=== PATIENT | male | born 1980 | race Caucasian/White ===

== ENCOUNTER 2018-06-06 14:53 | Outpatient (CLI) | payer BC, SELFPAY ==
--- NOTE | 2018-06-06 14:03 | DI.RAD_ITS ---
SYMPTOM/DIAGNOSIS: LT SHOULDER PAIN LEFT SHOULDER: 06/06 Three views were obtained. The glenoid is not ideally visualized on these views but appears to show some cortical irregularity anteriorly with subchondral lucencies. The findings may represent degenerative and/or post traumatic findings. Mild degenerative changes noted at the A-C joint. No other significant findings.
== END 2018-06-06 15:13 ==
PROVIDERS: PCP Nurse Practitioner; Visit Provider Student in an Organized Health Care Education/Training Program
DX: M25.512 Pain in left shoulder (principal); M19.012 Primary osteoarthritis, left shoulder
CPT/HCPCS: 73030

== ENCOUNTER 2018-06-09 00:37 | Outpatient (CLI) | payer BC, SELFPAY ==
--- NOTE | 2018-06-09 16:28 | DI.MRI_ITS ---
SYMPTOMS/DIAGNOSIS: LT SHOULDER PAIN, M25.512, ? PARTIAL RTC TEAR MRI OF THE LEFT SHOULDER: Routine noncontrast examination was performed. The supraspinatus, infraspinatus , teres minor and subscapularis tendons are intact. No evidence of a tear is seen. The rotator cuff muscles show normal signal and size. No muscular fatty atrophy is present. The biceps tendon has a normal appearance and location. The glenoid labrum has a normal appearance on this noncontrast examination. The glenohumeral articular cartilage appears well maintained. The ligaments are intact. No focal fluid collection or soft tissue mass is appreciated. Note is made of an os acromiale which is a normal variant. Mild degenerative signal changes are seen across the os. There is a multicystic lesion seen in the anterior inferior glenoid. The mass measures 1.9 x 1.8 cm. The lesion involves the marrow but extends beyond the cortex. No definite associated soft tissue mass is appreciated. IMPRESSION: 1. No evidence of a rotator cuff or labral tear. 2. Multicystic lesion involving the glenoid labrum. Follow up is recommended. This should include a CT scan of the shoulder. This may be followed by a post contrast MRI.
== END 2018-06-09 00:57 ==
PROVIDERS: PCP Nurse Practitioner; Visit Provider Student in an Organized Health Care Education/Training Program
DX: M25.512 Pain in left shoulder (principal); S43.432A Superior glenoid labrum lesion of left shoulder, initial encounter
CPT/HCPCS: 73221

== ENCOUNTER 2018-06-17 00:30 | Outpatient (CLI) | payer BC, SELFPAY ==
--- NOTE | 2018-06-17 08:09 | DI.CT_ITS ---
SYMPTOMS/DIAGNOSIS: SHOULDER LESION, EVALUATE LEFT GLENOID MASS, M75.[address]: CT examination of the shoulder was performed to evaluate findings seen on recent radiographs and MRI of a cystic anterior glenoid lesion with extension into soft tissue. CT findings comprise well-circumscribed numerous sclerotic- rimmed, rounded foci in the anterior glenoid consistent with cysts. Additionally, there are areas of irregular bony remodeling, although no gross destructive lesion is seen. There is gas in the glenohumeral joint space and also seen in the soft tissues adjacent to the anterior glenoid; correlation is requested regarding any recent instrumentation. If there has not been instrumentation, the possibility of infectious process would have to be considered. CONCLUSION: The differential diagnosis for the findings as described above would include degenerative arthropathy or other arthropathies, neoplastic disease, or infection. I would suggest additional imaging be obtained to include pre and post contrast MR evaluation of this region with T1 fat-sat imaging.
== END 2018-06-17 00:50 ==
PROVIDERS: PCP Nurse Practitioner; Visit Provider Student in an Organized Health Care Education/Training Program
DX: M75.82 Other shoulder lesions, left shoulder (principal); M19.011 Primary osteoarthritis, right shoulder
CPT/HCPCS: 73200

== ENCOUNTER 2018-06-24 01:36 | Outpatient (CLI) | payer BC, SELFPAY ==
[2018-06-24] MEDS: Gadoterate meglumine 20 ML VIAL IVP (15:08)
--- NOTE | 2018-06-24 15:16 | DI.MRI_ITS ---
SYMPTOMS/DIAGNOSIS: F/U CT, EVALUATE LEFT GLENOID MASS, M75.92 LEFT SHOULDER MRI: MRI examination of the shoulder was performed utilizing pre and post contrast multiplanar T1 fat-sat imaging. The previously noted, approximately 2 cm in diameter anterior labral mass-like abnormality seen on previous MRI and CT is again noted. This shows moderate enhancement on post contrast imaging in comparison with the pre contrast images. The enhancement pattern involves predominantly the septa of the cystic-appearing rounded regions in this mass. No enhancement of the surrounding tissues seen. The border is fairly well circumscribed. CONCLUSION: Post contrast enhancement noted in glenoid lesions as described above. The findings are suspicious for neoplastic disease including giant cell tumor and biopsy is recommended.
== END 2018-06-24 01:56 ==
PROVIDERS: PCP Nurse Practitioner; Visit Provider Student in an Organized Health Care Education/Training Program
DX: M75.82 Other shoulder lesions, left shoulder (principal)
CPT/HCPCS: 73222

== ENCOUNTER 2018-06-29 16:12 | Outpatient (REF) | payer BC, SELFPAY ==
[2018-06-29 22:19] LABS: TSH (W/Ref FT4) 3.33 uIU/mL (0.358-3.74)
== END 2018-06-29 16:32 ==
LOC: NCHCN 16:12
PROVIDERS: PCP Nurse Practitioner; Visit Provider Nurse Practitioner
DX: E03.9 Hypothyroidism, unspecified (principal)
CPT/HCPCS: 84443

== ENCOUNTER 2018-08-05 21:18 | Outpatient (REF) | payer BC, SELFPAY ==
[2018-08-05 22:25] LABS: Abs Immature Grans 0.01 k/cumm (0.0-0.09); Absolute Basophil Count 0.02 k/cumm (0.0-0.2); Absolute Eosinophil Count 0.26 k/cumm (0.0-0.7); Absolute Lymphocyte Count 1.73 k/cumm (1.2-3.4); Absolute Monocyte Count 0.58 k/cumm (0.11-0.7); Basophils % 0.3; Eosinophils % 4.3; HCT 49.1 % (40.0-50.0); HGB 16.7 g/dL (13.5-17.5); Immature Grans % 0.2; Lymphocytes % 28.4; Mean Corpuscular Hemoglobin 30.2 pg (27.0-33.0); Mean Corpuscular Volume 88.8 fL (80-95); Mean Platelet Volume 10.5 fL (8.0-11.0); Monocytes % 9.5; Neutrophils % 57.3; Platelet Count 203 x1000/uL (130-400); RBC 5.53 m/cumm (4.50-6.00); RBC Distribution Width 12.8 % (11.8-14.1)
[2018-08-05 22:31] LABS: Anion Gap 8.5 mmol/L (3-11); BUN 24 mg/dL (7-18); CO2 30.5 mmol/L (21.0-32.0); CREATININE 0.95 mg/dL (0.70-1.30); Calcium 9.1 mg/dL (8.5-10.1); Chloride 104 mmol/L (98-107); Glucose 76 mg/dL (70-100); Potassium 3.8 mmol/L (3.5-5.1); Sodium 143 mmol/L (136-145)
== END 2018-08-05 21:38 ==
LOC: NCHCN 21:18
PROVIDERS: PCP Nurse Practitioner; Visit Provider Nurse Practitioner
DX: Z01.818 Encounter for other preprocedural examination (principal)
CPT/HCPCS: 80048; 85025

== ENCOUNTER 2018-12-22 16:23 | Outpatient (REF) | payer BC, SELFPAY ==
[2018-12-22 21:08] LABS: TSH 4.16 uIU/mL (0.358-3.74)
[2018-12-23 10:42] LABS: T4 8.3 ug/dL (4.5-12.5)
== END 2018-12-22 16:43 ==
LOC: NCHCN 16:23
PROVIDERS: PCP Nurse Practitioner; Visit Provider Nurse Practitioner Family
DX: E03.9 Hypothyroidism, unspecified (principal)
CPT/HCPCS: 84436; 84443

== ENCOUNTER 2020-09-13 17:28 | Outpatient (REF) | payer BC, SELFPAY ==
[2020-09-13 20:35] LABS: Iron 105 ug/dL (65-175)
[2020-09-13 20:47] LABS: ALT 28 U/L (16-63); AST 17 U/L (15-37); Anion Gap 10.8 mmol/L (3-11); BUN 17 mg/dL (7-18); CO2 25.2 mmol/L (21.0-32.0); CREATININE 0.79 mg/dL (0.70-1.30); Calcium 8.6 mg/dL (8.5-10.1); Chloride 105 mmol/L (98-107); Glucose 93 mg/dL (74-106); Potassium 3.9 mmol/L (3.5-5.1); Sodium 141 mmol/L (136-145); TSH (W/Ref FT4) 2.43 uIU/mL (0.36-3.74)
[2020-09-13 21:11] LABS: Ferritin 248 ng/mL (26-388)
== END 2020-09-13 17:48 ==
LOC: NCHCN 17:28
PROVIDERS: PCP Nurse Practitioner; Visit Provider Nurse Practitioner Family
DX: E03.9 Hypothyroidism, unspecified (principal); G47.00 Insomnia, unspecified
CPT/HCPCS: 80048; 82728; 83540; 84443; 84450; 84460

== ENCOUNTER 2020-10-25 09:18 | Outpatient (CLI) | payer BC, SELFPAY ==
[2020-10-26 13:53] LABS: COVID-19 RT-PCR UVMMC Result Negative (Negative)
== END 2020-10-25 09:19 | disposition home or self-care (01) ==
PROVIDERS: PCP Nurse Practitioner; Visit Provider Nurse Practitioner Family
DX: J06.9 Acute upper respiratory infection, unspecified (principal)
CPT/HCPCS: U0003

== ENCOUNTER 2022-01-17 19:15 | Emergency (ER) | payer OTHER, SELFPAY ==
[2022-01-17 19:26] VITALS: BP 121/75; PULSE 75; RESP 18; TEMP 36.1; O2SAT 95
--- NOTE | 2022-01-17 19:52 | DI.RAD_ITS ---
Exam(s) XR SHOULDER RT COMPLETE 2+V EXAM: XR SHOULDER RT COMPLETE 2+V CLINICAL HISTORY: Injury R/O Fracture, Dislocation. TECHNIQUE: 2D digital imaging was performed. COMPARISON: CR XR shoulder LT complete 2+V from 06/06/2018 FINDINGS: 3 views There is a comminuted displaced midshaft fracture of the right clavicle. AC joint is not distracted. Glenohumeral joint and humeral head unremarkable. IMPRESSION: DATA REPOSITORY: RADIATION DOSE DELIVERED:
--- NOTE | 2022-01-17 20:00 | DI.RAD_ITS ---
Exam(s) XR CHEST 2V PA LATERAL EXAM: XR CHEST 2V PA LATERAL CLINICAL HISTORY: fall, right sided pain. TECHNIQUE: 2D digital imaging was performed. COMPARISON: No exams were available for comparison FINDINGS: 2 views: Heart size is normal. The mediastinum is not widened. Lungs are clear. No infiltrates nor pleural effusions. There is a midshaft mildly displaced fracture of the right clavicle. IMPRESSION: No acute pulmonary findings. Midshaft fracture of the right clavicle. DATA REPOSITORY: RADIATION DOSE DELIVERED:
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
[2022-01-17] MEDS: Ibuprofen 600 MG TAB PO (20:16)
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
== END 2022-01-17 21:17 | disposition home or self-care (01) ==
PROVIDERS: Emergency Provider Emergency Medicine; PCP Nurse Practitioner
DX: S42.031A Displaced fracture of lateral end of right clavicle, initial encounter for closed fracture (principal); S20.211A Contusion of right front wall of thorax, initial encounter; V86.56XA Driver of dirt bike or motor/cross bike injured in nontraffic accident, initial encounter
CPT/HCPCS: 99284; 71046; 73030; 99283

== ENCOUNTER 2022-01-27 11:15 | Outpatient (CLI) | payer OTHER, SELFPAY ==
[2022-01-27 12:27] LABS: Source Nasal/Nares
[2022-01-27 17:50] LABS: COVID-19 PCR Negative (Negative)
== END 2022-01-27 11:16 | disposition home or self-care (01) ==
LOC: LBO 11:15
PROVIDERS: PCP Student in an Organized Health Care Education/Training Program; Visit Provider Student in an Organized Health Care Education/Training Program
DX: Z20.822 Contact with and (suspected) exposure to COVID-19 (principal); Z01.818 Encounter for other preprocedural examination
CPT/HCPCS: 87635

== ENCOUNTER 2022-01-27 11:22 | Outpatient (CLI) | payer OTHER, SELFPAY ==
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
== END 2022-01-27 11:23 | disposition home or self-care (01) ==
LOC: DIORS 11:23
PROVIDERS: PCP Student in an Organized Health Care Education/Training Program; Referring Provider Student in an Organized Health Care Education/Training Program; Visit Provider Student in an Organized Health Care Education/Training Program
DX: S42.021A Displaced fracture of shaft of right clavicle, initial encounter for closed fracture (principal); X58.XXXA Exposure to other specified factors, initial encounter
CPT/HCPCS: 73000

== ENCOUNTER 2022-01-29 09:59 | Day surgery (SDC) | payer OTHER, SELFPAY ==
[2022-01-29] VITALS (9 sets, daily range): BP systolic 120–183; BP diastolic 66–96; PULSE 51–69; RESP 12–16; TEMP 36.1–37; O2SAT 96–100; BMI 30.9
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
[2022-01-29] MEDS: Lactated Ringers 1,000 ML 100 ML IV (10:39)
--- NOTE | 2022-01-29 12:09 | W.ANESNERVE ---
Nerve Block Single Injection Procedure Date and Time Date Performed: 01/29/22 Procedure Start: 11:45 Location Where Procedure Performed Procedure Location: Day Surgery Unit Reason Performed: Postoperative Analgesia Requesting Provider: Kurt Gilmore Timeout Performed Timeout Performed: Yes Monitoring Used ECG, Blood Pressure, SpO2 and See EMR for corresponding vital signs Sterility Sterility: Hand Hygiene, Surgical Cap, Surgical Mask, Sterile Gloves and Chlorhexidine Sedation Given During Procedure Sedation Given (Indicate Dose Given): Versed IV Dose:: 2mg Patient Mental Status Patient Mental Status: Sedate with meaningful communication Nerve Block 1st Nerve Block: Laterality: Right Block Type: Superficial Cervical Plexus Needle / Catheter Used: 100mm SonoPlex II Local Anesthetic Bolus (Indicate Dose Given): Lidocaine used for local infiltration of skin, Injected in 3-5ml increments after negative blood aspiration and Bupivacaine 0.5% Dose:: 10ml Additives (Indicate Dose Given): None Ultrasound: Sterile probe cover and gel used Ultrasound Image Saved?: Yes Nerve Stimulator: Not Used Paresthesia: None Procedure Tolerated: No Complications and Patient tolerated well Procedure Outcome: Successful Performed By: Godwin Buck
[2022-01-29] MEDS: ceFAZolin 2 GM/50 ML BAG IVPB (12:46)
[2022-01-29] MEDS: Bupivacaine 0.5% Pres-Free W/EPI 10 ML VIAL (13:38)
--- NOTE | 2022-01-29 15:00 | DI.RAD_ITS ---
Exam(s) XR CLAVICLE RT EXAM: XR CLAVICLE RT CLINICAL HISTORY: (1) Closed fracture of right clavicle: TECHNIQUE: 2D and realtime digital imaging was performed. CONTRAST MATERIAL: Refer to procedure report. COMPARISON: CR XR CLAVICLE RT from 01/27/2022 FINDINGS: Fluoroscopy was provided for Dr. Gilmore during the performance of a reduction and internal fixation o f the right clavicular fracture. Please refer to the procedure report for complete details. Ka,r=1.15 mGy IMPRESSION: RADIATION DOSE DELIVERED:
[2022-01-29] MEDS: Bupivacaine 0.5% Pres-Free 10 ML VIAL (15:13)
--- NOTE | 2022-01-29 15:19 | W.PM.DSUDISC ---
Discharge Plan Disposition Patient Disposition: HOME Condition: Stable Discharge Details Reason For Visit: Right clavicle surgery Attending Provider: Kurt Gilmore Primary Care Provider: Adri Quarles Home Meds and New Rx's Prescriptions: New naproxen 250 mg tablet 250 - 500 mg PO BID PRNQty: 40 0RF Rx Instructions: take with a meal tramadol 50 mg tablet 50 mg PO Q8H PRN (Reason: severe pain) Qty: 9 0RF Continued gabapentin 100 mg capsule 100 cap PO DAILY Label Comments: 1 tablet daily Discharge Instructions Additional Instructions: Surgery: Right clavicle ORIF with bone grafting Activity: You should keep your arm at your side in a neutral position most of the time except for gentle range of motion exercises and essential activities of daily living. Avoid any resisted pulling, pushing, or lifting anything heavier than a coffee. You should use the sling whenever you are out of the house for 6 weeks. At home it is best to remove the sling and rest the forearm on a pillow or support the operative side with your other hand. Do NOT use any power tools that cause vibrations. A physical therapy prescription will be provided at follow-up if needed. Prescriptions: Naproxen 250 mg take 1-2 every 12 hours with a meal as needed for moderate pain Tramadol 50 mg take 1 every 6-8 hours as needed for severe pain You may use [id number] Tylenol (acetaminophen) as needed for mild pain. These pain medications may be taken all at once or in different combinations as needed. Also, recommend Colace (docusate) as a stool softener as surgery and pain medicine cause constipation. You may try [id number] diphenhydramine (Benadryl) 25-50 mg nightly as a sleep aid Dressings: Leave dressing in place until follow-up. Keep clean and dry at all times. Follow-up: 10-[address] Gilmore Let us know right away if you develop any redness, drainage, fevers, chest pain, or trouble breathing. Do not drink alcohol or drive for at least 24 hours after anesthesia. Please call the office during business hours with any questions or concerns. Discharge Orders Discharge Orders: Discharge Order (Routine); Ordered 01/29/22 Ordered By: Kurt Gilmore DS: Diagnosis Discharge Diagnosis (1) Closed fracture of right clavicle: Status: Acute
[2022-01-29] MEDS: HYDROmorphone 2 MG/ML VIAL IVP (15:40)
--- NOTE | 2022-01-29 15:42 | W.PM.OP ---
Operative Note Operative Note DATE OF PROCEDURE: 01/29/22 PRE-OP DIAGNOSIS: Right displaced clavicle fracture PROCEDURE: Right clavicle open reduction internal fixation, CPT #89863 SURGEON: Kurt Gilmore MACHINE BANDER AND CELLOPHANER HELPER: Cate Arvizu ANESTHESIA TYPE: Local By Surgeon, General LMA/ETT and Primary Nerve Block Refer to Anesthesia Record ESTIMATED BLOOD LOSS: 15 COMPLICATIONS: None Patient was transported to: PACU Patient's condition: stable Implants: Synthes 2.7mm VA LCP clavicle plate system CS1 plate with 3x lateral and 3x medial locking screws and 1x medial cortex screw PliaFX 2.5 cc demineralized bone fiber Indications: Please see complete medical record for details. Procedure Description: In the operating room, general anesthesia was induced. The patient was positioned supine on the operating room table. All bony prominences were well-padded. Preoperative antibiotics were administered. The clavicle was prepped and draped in the usual sterile fashion. The correct patient, procedure, and side of the procedure were all verified prior to incision. The planned incision was pre-injected with 30 cc of a 50:50 mixture of bupivacaine and lidocaine containing epinephrine. The fracture site was approached raising full-thickness flaps down to bone. The incision was extended medially laterally as necessary. Care was taken to preserve soft tissue attachments. The fracture ends were identified. There was early healing callus, which were was removed, some comminution, and multiple segmental bone fragments anteriorly and posteriorly inferiorly. Bone forceps were used to provisionally obtain reduction. Suture tape cerclage was used to secure the segmental fracture components about the medial clavicle. The medial reduced fragments were then reduced and compressed as best possible to the lateral fragment. It was impossible to obtain a perfect anatomic reduction due to bone loss superiorly and posteriorly. An appropriate precontoured superior plate was applied. It was compressed to bone with a cortex screw laterally and medially. Bone clamp was used to improve fracture and reduction under the plate prior to securing rotation and compression tightening the medial and lateral compression screws. Bone clamp was left in place maintain reduction while 2 appropriately length bicortical locking screws were placed laterally followed by 3 locking screws medially. Bone clamp was removed and reduction was maintained. The original lateral cortex screw was removed as planned and replaced with an appropriately length bicortical locking screw. The fourth lateral locking screw was too close to the posterior superior extension of the fracture site and was omitted. The plate and fractures were all inspected and demonstrated excellent stability and fixation strength. AP, cephalic tilt, and [id number] fluoroscopy confirmed appropriate fracture reduction and hardware placement. There is excellent bone apposition anteriorly but there was bone loss superiorly and posteriorly with slight fracture gapping. To best optimize repair, [place] fracture prime demineralized bone fiber was then molded posteriorly and superiorly more than filling in any bone void and using additional material to augment healing superiorly through the central holes in the plate and anteriorly and posteriorly about the segmental fracture fragments. The wound was copiously irrigated with normal saline. Deep and subcutaneous tissue was closed in a full-thickness watertight fashion with buried interrupted 2-0 Monocryl. Subcuticular layer was closed using running 3-0 Monocryl. Skin glue was applied over the incision followed by a Mepilex Band-Aid. The patient awoke from anesthesia without complication and was transferred to the recovery room in a stable condition.
[2022-01-29] MEDS: Normal Saline 10 ML VIAL IJ (15:46)
--- NOTE | 2022-01-29 15:50 | W.ANESPOSTOP ---
Postoperative Evaluation Date, Time and Location Date Performed: 01/29/22 Time Performed: 14:50 Patient Location: PACU Vital Signs Most Recent Imported Vital Signs: Most Recent Vital Signs Temp Pulse Resp BP Pulse Ox 36.3 C L 65 13 131/83 99 01/29/22 15:35 01/29/22 15:35 01/29/22 15:35 01/29/22 15:35 01/29/22 15:35 Pain Score Most Recent Pain Score: Most Recent Pain Score Pain Level 6 01/29/22 15:35 Assessment Mental Status: Awake (Alert & Oriented to Patient Baseline) Airway and Respiratory Function: Patent airway with normal (patient baseline) respiratory exam Cardiovascular Function: Hemodynamically Stable Hydration Status: Adequately Hydrated Nausea & Vomiting: No Nausea or Vomiting Pain: Pain is tolerable per patient Peripheral Nerve Block: Regional nerve block not resolved at time of post operative discharge
== END 2022-01-29 16:55 | disposition home or self-care (01) ==
PROVIDERS: PCP Nurse Practitioner Family; Visit Provider Student in an Organized Health Care Education/Training Program
PROC: (CPT 23515; principal; 2022-01-29 12:15)
DX: S42.021A Displaced fracture of shaft of right clavicle, initial encounter for closed fracture (principal); V29.00XA Motorcycle driver injured in collision with unspecified motor vehicles in nontraffic accident, initial encounter; F17.220 Nicotine dependence, chewing tobacco, uncomplicated
CPT/HCPCS: 23515; 76942; 73000; J0690; J1100; J1885; J2250; J2405; J2704

== ENCOUNTER 2022-02-10 15:06 | Outpatient (CLI) | payer OTHER, SELFPAY ==
--- NOTE | 2022-02-10 15:00 | DI.RAD_ITS ---
Exam(s) XR CLAVICLE RT EXAM: XR CLAVICLE RT INDICATION: RIGHT CLAVICLE FX F/U. COMPARISON: CR XR CLAVICLE RT from 01/27/2022 XA XR CLAVICLE RT from 01/29/2022 TECHNIQUE: 2D digital imaging was performed. Two views. FINDINGS: A fixation plate is again noted a in the clavicle for fracture fixation. There has been no change in fracture or hardware alignment DATA REPOSITORY: RADIATION DOSE DELIVERED:
== END 2022-02-10 15:07 | disposition home or self-care (01) ==
LOC: DIORS 15:07
PROVIDERS: PCP Nurse Practitioner Family; Referring Provider Nurse Practitioner Family; Visit Provider Student in an Organized Health Care Education/Training Program
DX: S42.021D Displaced fracture of shaft of right clavicle, subsequent encounter for fracture with routine healing (principal); X58.XXXD Exposure to other specified factors, subsequent encounter
CPT/HCPCS: 73000

== ENCOUNTER 2022-03-10 14:53 | Outpatient (CLI) | payer OTHER, SELFPAY ==
--- NOTE | 2022-03-10 14:30 | DI.RAD_ITS ---
Exam(s) XR CLAVICLE RT EXAM: XR CLAVICLE RT CLINICAL HISTORY: RIGHT CLAVICLE F/U. TECHNIQUE: 2D digital imaging was performed. COMPARISON: CR XR CLAVICLE RT from 02/10/2022 FINDINGS: Two views Stable appearance of the dorsal fusion plate across the healing midshaft clavicular site. Fracture l ine still evident in the clavicle but there is stable alignment. No evidence of hardware loosening a nd no radiographic evidence of osteomyelitis. AC joint appears unremarkable. IMPRESSION: DATA REPOSITORY: RADIATION DOSE DELIVERED:
== END 2022-03-10 14:54 | disposition home or self-care (01) ==
LOC: DIORS 14:53
PROVIDERS: PCP Nurse Practitioner Family; Referring Provider Nurse Practitioner Family; Visit Provider Student in an Organized Health Care Education/Training Program
DX: M89.8X1 Other specified disorders of bone, shoulder (principal)
CPT/HCPCS: 73000

== ENCOUNTER 2022-04-14 15:33 | Outpatient (CLI) | payer OTHER, SELFPAY ==
--- NOTE | 2022-04-14 14:45 | DI.RAD_ITS ---
Exam(s) XR CLAVICLE RT EXAM: XR CLAVICLE RT INDICATION: RIGHT CLAVICLE F/U. COMPARISON: CR XR CLAVICLE RT from 03/10/2022 TECHNIQUE: 2D digital imaging was performed. Two views. FINDINGS: There has been no change in fracture or hardware alignment. There is been slight interval increase i n healing at the fracture site. DATA REPOSITORY: RADIATION DOSE DELIVERED:
== END 2022-04-14 15:34 | disposition home or self-care (01) ==
LOC: DIORS 15:33
PROVIDERS: PCP Nurse Practitioner Family; Referring Provider Nurse Practitioner Family; Visit Provider Student in an Organized Health Care Education/Training Program
DX: S42.021D Displaced fracture of shaft of right clavicle, subsequent encounter for fracture with routine healing (principal)
CPT/HCPCS: 73000

== ENCOUNTER 2022-05-13 15:35 | Outpatient (CLI) | payer OTHER, SELFPAY ==
--- NOTE | 2022-05-13 15:00 | DI.RAD_ITS ---
Exam(s) XR CLAVICLE RT EXAM: XR CLAVICLE RT CLINICAL HISTORY: RIGHT CLAVICLE FX F/U TECHNIQUE: 2D digital imaging was performed of the right clavicle. Two images were obtained. AP and axial views were obtained. COMPARISON: CR XR CLAVICLE RT from 04/14/2022 FINDINGS: BONES: There is again seen a sideplate and screws transfixing the mid right clavicular fracture. No change in alignment of the fracture is seen. No new fractures identified. No bony destructive lesio n is seen. JOINTS: No dislocation present. SOFT TISSUE: Normal IMPRESSION: Stable right clavicular fracture. DATA REPOSITORY: RADIATION DOSE DELIVERED:
== END 2022-05-13 15:36 | disposition home or self-care (01) ==
LOC: DIORS 15:36
PROVIDERS: PCP Nurse Practitioner Family; Visit Provider Student in an Organized Health Care Education/Training Program
DX: S42.001D Fracture of unspecified part of right clavicle, subsequent encounter for fracture with routine healing (principal); X58.XXXD Exposure to other specified factors, subsequent encounter
CPT/HCPCS: 73000

== ENCOUNTER 2022-08-05 09:35 | Outpatient (CLI) | payer OTHER, SELFPAY ==
--- NOTE | 2022-08-05 08:00 | DI.RAD_ITS ---
Exam(s) XR KNEE LT 3V AP,LAT,ANGIE EXAM: XR KNEE LT 3V AP,LAT,ANGIE CLINICAL HISTORY: L knee pain. TECHNIQUE: 2D digital imaging was performed. COMPARISON: No exams were available for comparison FINDINGS: 3 views There is soft tissue swelling anterior to the patella. No patellar fracture. Calcification is noted at the at the insertional aspect of the quadriceps on the anterosuperior aspect of the patella. The re does not appear to be a joint effusion. No significant degenerative changes. Bone density normal . No osseous lesions. IMPRESSION: Anterior prepatellar soft tissue swelling. No fractures evident. No degenerative changes seen. DATA REPOSITORY: RADIATION DOSE DELIVERED:
== END 2022-08-05 09:36 | disposition home or self-care (01) ==
LOC: DIORS 09:35
PROVIDERS: PCP Nurse Practitioner Family; Referring Provider Nurse Practitioner Family; Visit Provider Physician Assistant
DX: M25.562 Pain in left knee (principal); M79.89 Other specified soft tissue disorders
CPT/HCPCS: 73562

== ENCOUNTER 2023-10-26 15:08 | Outpatient (REF) | payer OTHER, SELFPAY ==
[2023-10-26 21:26] LABS: HCT 46.9 % (40.0-50.0); MCHC 34.1 % (32.0-36.0); MCV 88 fL (80-95); MPV 10.2 fL (8.0-11.0); Platelet Count 206 10^3/uL (130-400); RBC 5.34 10^6/uL (4.36-5.78); WBC 5.52 10^3/uL (4.4-10.8)
[2023-10-26 21:54] LABS: ALT 28 U/L (16-63); AST 17 U/L (15-37); Albumin 4.2 g/dL (3.4-5.0); Alkaline Phosphatase 85 U/L (46-116); Anion Gap 12.1 mmol/L (3-11); BUN 22 mg/dL (7-18); Bilirubin, Total 0.4 mg/dL (0.2-1.0); CO2 25.9 mmol/L (21.0-32.0); Calcium 8.8 mg/dL (8.5-10.1); Calculated LDL 126 mg/dL (<100); Chloride 104 mmol/L (98-107); Cholesterol 213 mg/dL (<200); Estimated GFR 96.37 (mL/min/1.73m2); Glucose 125 mg/dL (74-106); HDL Cholesterol 52 mg/dL (40-60); Potassium 3.6 mmol/L (3.5-5.1); Sodium 142 mmol/L (136-145); TSH 2.52 uIU/mL (0.36-3.74); Total Protein 7.5 g/dL (6.4-8.2); Triglyceride 175 mg/dL (<150)
[2023-10-26 22:05] LABS: Uric Acid 6.2 mg/dL (3.5-7.2)
== END 2023-10-26 15:09 | disposition home or self-care (01) ==
LOC: NCHCN 15:08
PROVIDERS: PCP Nurse Practitioner Family; Visit Provider Nurse Practitioner Family
DX: Z00.00 Encounter for general adult medical examination without abnormal findings (principal); E03.9 Hypothyroidism, unspecified; R79.89 Other specified abnormal findings of blood chemistry; M79.674 Pain in right toe(s)
CPT/HCPCS: 80053; 80061; 85027; 84443; 84550

== ENCOUNTER 2024-10-31 16:54 | Outpatient (REF) | payer OTHER, SELFPAY ==
[2024-10-31 21:11] LABS: HCT 47.3 % (40.0-50.0); HGB 15.9 g/dL (13.5-17.5); MCH 31.1 pg (27.0-33.0); MCHC 33.6 % (32.0-36.0); MCV 93 fL (80-95); MPV 10.2 fL (8.0-11.0); Platelet Count 201 10^3/uL (130-400); RBC 5.11 10^6/uL (4.36-5.78); RDW 12.8 % (11.8-14.1); RDW-SD 43.6 fL
[2024-10-31 21:33] LABS: ALT 22 U/L (16-63); AST 19 U/L (15-37); Albumin 4.2 g/dL (3.4-5.0); Alkaline Phosphatase 69 U/L (46-116); Anion Gap 7.9 mmol/L (3-11); BUN 14 mg/dL (7-18); Bilirubin, Total 0.49 mg/dL (0.2-1.0); CO2 29.1 mmol/L (21.0-32.0); Calcium 8.8 mg/dL (8.5-10.1); Calculated LDL 117 mg/dL (<100); Chloride 106 mmol/L (98-107); Cholesterol 202 mg/dL (<200); Estimated GFR 95.77 (mL/min/1.73m2); Glucose 93 mg/dL (74-106); HDL Cholesterol 77 mg/dL (40-60); Sodium 143 mmol/L (136-145); TSH (W/Ref FT4) 2.43 uIU/mL (0.36-3.74); Total Protein 7.1 g/dL (6.4-8.2); Triglyceride 42 mg/dL (<150)
== END 2024-10-31 16:55 | disposition home or self-care (01) ==
LOC: NCHCN 16:54
PROVIDERS: PCP Nurse Practitioner Family; Visit Provider Nurse Practitioner Family
DX: E03.9 Hypothyroidism, unspecified (principal); Z00.00 Encounter for general adult medical examination without abnormal findings
CPT/HCPCS: 80053; 80061; 85027; 84443